=== PATIENT | male | born 1990 | race Caucasian/White ===

== ENCOUNTER → 2018-04-11 | Outpatient (CLI) | payer BC ==
[2018-04-11 18:43] LABS: ABSOLUTE EOSINOPHILS # (AUTO) 0.3 10^3/uL (0.0-0.6); ABSOLUTE LYMPHOCYTES (AUTO) 0.8 10^3/uL (0.5-4.7); ABSOLUTE MONOCYTES (AUTO) 0.5 10^3/uL (0.1-1.4); ABSOLUTE NEUT (AUTO) 4.2 10^3/uL (1.7-8.2); BASOPHILS % (AUTO) 0.7 % (0-2); EOSINOPHILS % (AUTO) 4.4 % (0-6); HEMOGLOBIN 14.5 g/dL (13.5-17.0); LYMPHOCYTES % (AUTO) 13.9 % (13-45); MEAN CORPUSCULAR HEMOGLOBIN 30.6 pg (27.0-33.4); MEAN CORPUSCULAR HGB CONC 34.6 g/dL (32.0-36.0); MEAN CORPUSCULAR VOLUME 88 fl (80-97); MONOCYTES % (AUTO) 9.4 % (3-13); PLATELET COUNT 254 10^3/uL (150-450); RED BLOOD COUNT 4.75 10^6/uL (4.35-5.55); RED CELL DISTRIBUTION WIDTH 13.2 % (11.5-14.0); SEGMENTED NEUTROPHILS % (AUTO) 71.6 % (42-78); TOTAL CELLS COUNTED % (AUTO) 100 %; WHITE BLOOD COUNT 5.8 10^3/uL (4.0-10.5)
[2018-04-11 19:09] LABS: ALANINE AMINOTRANSFERASE 61 U/L (21-72); ALBUMIN 4.6 g/dL (3.5-5.0); ALKALINE PHOSPHATASE 117 U/L (38-126); ANION GAP 14 (5-19); ASPARTATE AMINO TRANSFERASE 33 U/L (17-59); BILIRUBIN,DIRECT 0.3 mg/dL (0.0-0.4); BILIRUBIN,TOTAL 0.5 mg/dL (0.2-1.3); BLOOD UREA NITROGEN 14 mg/dL (7-20); CALCIUM 9.7 mg/dL (8.4-10.2); CARBON DIOXIDE 22 mmol/L (22-30); CHLORIDE 107 mmol/L (98-107); GLUCOSE 79 mg/dL (75-110); LIPASE 130.3 U/L (23-300); POTASSIUM 4.3 mmol/L (3.6-5.0); SODIUM 143.1 mmol/L (137-145); TOTAL PROTEIN 7.5 g/dL (6.3-8.2)
[2018-04-11 19:21] LABS: ERYTHROCYTE SEDIMENTATION RATE 23 mm/hr (0-15)
== END ==
LOC: LAB 16:53
PROVIDERS: ATTEND Nurse Practitioner Acute Care
DX: R10.9 Unspecified abdominal pain (principal)
CPT/HCPCS: 36415; 80053; 83690; 85025; 85652

== ENCOUNTER 2019-11-23 08:55 | Day surgery (SDC) | payer BC, OTHER ==
[~2019-11-23 08:55] MED LIST: PROPOFOL INJ 200 MG/20 ML VIAL IV ONE
[2019-11-23 11:57] VITALS: BP 133/78
--- NOTE | 2019-11-23 12:45 | Operative Report ---
Operative Report DATE OF SURGERY: 11/23/19 Operative Report: The risk, benefits and alternatives of the procedure including the risk of bleeding, perforation requiring surgery are discussed with the patient in detail Informed consent is obtained Propofol medication is administered Rectal examination is performed, no masses tears or fissures. Colonoscopy completed to this cecum with all segments evaluated. Retroflexion maneuvers performed. Upper endoscopy was then performed. All segments reviewed. Retroflexion maneuvers performed. PREOPERATIVE DIAGNOSIS: Epigastric pain, rectal bleeding POSTOPERATIVE DIAGNOSIS: Right side colon inflammation status post biopsy. Internal hemorrhoids. Gastritis status post biopsy for Helicobacter pylori OPERATION: Colonoscopy with biopsy. EGD with biopsy SURGEON: JAIDEN GALAN ANESTHESIA: LMAC TISSUE REMOVED OR ALTERED: As noted above. COMPLICATIONS: None. ESTIMATED BLOOD LOSS: None. INTRAOPERATIVE FINDINGS: As noted above. PROCEDURE: Patient tolerated the procedure well. No immediate postprocedure complications are noted. Patient is discharged in good condition. Discharge date 11/23/2019. Discharge diet: Regular. Discharge activity: Regular. 2 to 3-week follow-up to discuss findings. Patient is instructed to call the office or proceed to the emergency room should there be any further problems or questions. Wait on the pathology.
== END 2019-11-23 11:48 | disposition home or self-care (01) ==
LOC: END 08:55
PROVIDERS: ATTEND Internal Medicine Gastroenterology
DX: K52.9 Noninfective gastroenteritis and colitis, unspecified (principal); K62.5 Hemorrhage of anus and rectum; K21.9 Gastro-esophageal reflux disease without esophagitis; K64.8 Other hemorrhoids; K29.50 Unspecified chronic gastritis without bleeding; I10 Essential (primary) hypertension; Q87.40 Marfan syndrome, unspecified; R06.02 Shortness of breath
CPT/HCPCS: 43239; 45380; 88342 ×2; 88305 ×2; J2704; 813

== ENCOUNTER → 2020-08-19 | Outpatient (CLI) | payer OTHER ==
[2020-08-19 23:30] LABS: CREATININE 1.11 mg/dL (0.52-1.25); URINE CREATININE 106.2 mg/dL (24-392)
== END ==
LOC: OD 16:07
PROVIDERS: ATTEND Physician Assistant Medical
DX: N18.2 Chronic kidney disease, stage 2 (mild) (principal)
CPT/HCPCS: 36415; 82575